=== PATIENT | female | born 1990 ===

== ENCOUNTER 2018-07-01 09:55 | Emergency (ER) | payer OTHER ==
[~2018-07-01] VITALS: Ht 167.6 cm; Wt 90.7 kg
[~2018-07-01 09:55] MED LIST: MOTRIN800 MG PO; ORPH100T PO
== END 2018-07-01 14:06 | disposition home or self-care (01) ==
LOC: ER 09:55
DX: S90.32XA Contusion of left foot, initial encounter (principal); W22.8XXA Striking against or struck by other objects, initial encounter; Y93.89 Activity, other specified; Y92.89 Other specified places as the place of occurrence of the external cause; Y99.8 Other external cause status